=== PATIENT | female | born 1965 | race Caucasian/White ===

== ENCOUNTER 2024-02-03 20:23 | Emergency (ER) | payer MEDICAID, SELFPAY ==
[2024-02-03 20:24] VITALS: BP 148/67; PULSE 65; RESP 16; TEMP 37; O2SAT 99; BMI 17.6
[2024-02-03 20:30] VITALS: BP 148/67; PULSE 60; O2SAT 99
--- NOTE | 2024-02-03 20:31 | ECG_ITS ---
APPROVED REPORT Exam: Resting ECG HR:54 bpm ECG Measurements Heart Rate 54 AXES MT 153 P 85 QRSd 84 QRS 66 QT 428 T 74 QTc 415 Conclusion SINUS BRADYCARDIA WITH SINUS ARRHYTHMIA No STEMI -Jayla Patel MD Electronically signed by : JAYLA PATEL, 02/03/2024 23:40:53
--- NOTE | 2024-02-03 20:49 | XR_ITS ---
PROCEDURE INFORMATION: Exam: XR Chest Exam date and time: 02/03/2024 8:50 PM Age: 58 years old Clinical indication: Other: Syncope TECHNIQUE: Imaging protocol: Radiologic exam of the chest. Views: 1 view. COMPARISON: No relevant prior studies available. FINDINGS: Lungs: Unremarkable. No consolidation. Pleural spaces: Unremarkable. No pleural effusion. No pneumothorax. Heart/Mediastinum: Unremarkable. No cardiomegaly. Bones/joints: Unremarkable. IMPRESSION: No acute findings.
--- NOTE | 2024-02-03 20:50 | ED_ITS ---
Discharge Plan Disposition Patient Disposition: Home, Self-Care Condition: Fair Prescriptions Prescriptions: New cefdinir 300 mg capsule 300 mg PO BID 5 Days Qty: 10 0RF Referrals Follow up/Referrals: Leia Nuno APRN [Primary Care Provider] - See instructions Activity Restrictions/Add. Instructions Additional Instructions/Restrictions: Follow up with your PCP in the next week regarding your lightheadedness and your UTI. Clinical Impressions Clinical Impression: UTI (urinary tract infection), Near syncope Instructions Patient Instructions: DI for Syncope in Adults (Fainting), DI for Urinary Tract Infection (UTI) Discharge ED Provider: Jayla Patel General Adult HPI General Chief complaint: Nausea/Vomiting/Diarrhea Stated complaint: N/V WEAKNESS Time Seen by Provider: 02/03/24 20:29 Mode of Arrival: Wheelchair Source of Information: Patient Limitations: No Limitations Description of Symptoms (Recalled from ER Triage Doc. by RN): Pt was visiting her son in Room 5 when she began to experience N/V and weakness. Pt states she's had spells like this for over 30 yerars. Pt was seen for this previously and did not get a dx. Pt states she has no pain and does not feel bad. Pt states the spells last from 2 minutes to 15 minutes. Pt is A&O*4 at this time. History of Present Illness HPI narrative: 58-year-old female with previous medical history of frequent similar episodes for 30 years and long-term tobacco use presents with syncope. Patient was visiting her son in the emergency department when she began to feel generalized weakness, lightheadedness, darkening of her vision, nausea, and slowly passed out and went to the ground. Family at the bedside states that this is normal for her and she frequently has these episodes without seeking medical care. Patient states she has not recently seen a supervisor net making but has been to a neurologist for these episodes before and is not sure of the cause. Denies chest pain, palpitations, shortness of breath. Related Data Previous Rx's Medication Instructions Recorded cefdinir 300 mg capsule 300 mg PO BID 5 days #10 caps 02/03/24 Allergies Allergy/AdvReac Type Severity Reaction Status Date / Time No Known Allergies Allergy Unverified 10/12/17 15:12 [facility] Disclaimer: The information contained in this section may have been updated after the patient was seen, as this information can be updated by other users. Social History Smoking Status: Current every day smoker alcohol intake: former current occupational status: other Travel in the last 8 weeks: None ROS Obtained: Yes All systems reviewed & no additional complaints except as documented Physical Exam General General appearance: alert and in no apparent distress Head Head exam: atraumatic, normocephalic and normal inspection Eye Eye exam: Present normal appearance, PERRL and EOMI ENT ENT exam: Present normal exam, normal oropharynx and mucous membranes moist Neck Neck exam: Present normal inspection, full ROM and trachea midline; Absent meningismus or lymphadenopathy Chest Chest inspection: Present normal inspection and symmetric chest wall rise; Absent tenderness Respiratory Respiratory exam: Present normal lung sounds bilaterally; Absent respiratory distress Cardiovascular Cardiovascular exam: Present regular rate and normal rhythm; Absent JVD Abdominal Exam Abdominal exam: Present soft and normal bowel sounds; Absent distention, tenderness or guarding Extremities Exam Extremities exam: Present normal inspection, full ROM and normal capillary refill; Absent calf tenderness Back Exam Back exam: Present normal inspection; Absent tenderness Neurological Exam Neurological exam: Present alert and oriented X3 Psychiatric Psychiatric exam: Present normal affect and normal mood Skin Skin exam: Present warm, dry, intact and normal color Lymphatic Lymphatic Findings: no adenopathy Medical Decision Making Sahil Inquiry Pt receiving controlled substance: No Sahil was queried for this patient: No Vital Signs: 02/03/24 20:24 02/03/24 20:30 02/03/24 21:02 Temperature 98.6 F Temperature Source Oral Pulse Rate 60 72 Pulse Rate [Left] 65 Respiratory Rate 16 Blood Pressure 148/67 H 151/59 H Blood Pressure [Right Arm] 148/67 H Blood Pressure Mean [Right Arm] 94 02 Sat by Pulse Oximetry 99 99 96 Oxygen Delivery Method Room Air 02/03/24 21:31 Temperature Temperature Source Pulse Rate 77 Pulse Rate [Left] Respiratory Rate Blood Pressure 136/76 Blood Pressure [Right Arm] Blood Pressure Mean [Right Arm] 02 Sat by Pulse Oximetry 96 Oxygen Delivery Method Lab Data Lab Results 02/03/24 20:28: WBC 10.8, RBC 4.53, Hgb 14.7, Hct 45.2, MCV 99.7 H, MCH 32.5 H, MCHC 32.6, RDW 12.9, Plt Count 301, MPV 8.7, Neut % (Auto) 45.6, Lymph % (Auto) 46.5, [place] % (Auto) 4.5, Eos % (Auto) 1.8, Baso % (Auto) 1.7, Neut # (Auto) 4.9, Lymph # (Auto) 5.0 H, [place] # (Auto) 0.5, Eos # (Auto) 0.2, Baso # (Auto) 0.2, Sodium 140, Potassium 3.8, Chloride 106, Carbon Dioxide 28, Anion Gap 9.8, BUN 10, Creatinine 0.80, Estimated Creat Clear 49, Estimated GFR 73, Est GFR ( Amer) 89, Glucose 107 H, Calcium 9.9, Troponin I < 0.01 02/03/24 21:47: Urine Color Yellow, Urine Appearance Clear, Urine pH 6.0, Ur Specific [place] 1.025, Urine Protein Negative, Urine Glucose (UA) Negative, Urine Ketones Negative, Urine Blood Trace-i, Urine Nitrate Negative, Urine Bilirubin Negative, Urine Urobilinogen 0.2, Ur Leukocyte Esterase Trace, Urine RBC 3-5, Urine WBC 5-10, Ur Squamous Epith Cells 3-5, Urine Bacteria 1+ 02/03/24 20:28 02/03/24 20:28 Orders (Tests/Meds): ED MEDICATIONS Discontinued Medications Generic Name Dose Route Start Last Admin Trade Name Freq PRN Reason Stop Dose Admin Cefdinir 300 mg 02/03/24 09:00 Cefdinir 300mg Capsule PO 02/03/24 09:01 ONCE ONE Lactated Ringer's 1,000 mls @ 999 mls/hr 02/03/24 20:48 02/03/24 21:00 Lactated Ringer's 1000 Ml Bag IV 02/03/24 21:48 999 mls/hr .Q1H1M ONE Administration ORDERS Category Date Time Status Chest XR -- portable [XR chest portable] Stat Exams 02/03/24 20:49 Completed BMP [Basic Metabolic Panel] Stat Lab 02/03/24 20:28 Completed CBC [Complete Blood Count Auto Diff] Stat Lab 02/03/24 20:28 Completed Trop I [Troponin I] Stat Lab 02/03/24 20:28 Completed Troponin I Q3H Lab 02/03/24 23:49 Ordered Troponin I Q3H Lab 02/04/24 02:49 Ordered Urinalysis and Microscopic Stat Lab 02/03/24 21:47 Completed ECG Data Tracing #1: ECG initial impression date: 02/03/24 ECG initial impression time: 20:45 ECG normal with no acute: arrhythmias, ischemia, conduction abnormalities, chamber hypertrophy Arrhythmias present: sinus shae Medical Decision Narrative: Considered multiple causes of patient's presentation including ACS, arrhythmia, low suspicion for PE, also considered pneumonia, pneumothorax, hypoglycemia, endocrinologic and metabolic abnormalities, among others. For this reason obtain CBC, CMP, troponin, chest x-ray and urine. These labs I independently reviewed and interpreted and were reassuring for normal CBC, CMP, undetectable troponin, chest x-ray independently reviewed and interpreted and shows no acute abnormalities to explain her syncope, and urinalysis I independently reviewed and interpreted and showed UTI in the setting of her suprapubic tenderness and reported lower abdominal discomfort. For this reason discussed with patient that she seems to have acute cystitis that may be contributing to her acute on chronic orthostatic lightheadedness so though patient symptoms have improved at this time I advised that she follow closely with her PCP to ensure that her symptoms improve within the next few days. Discharged with strict return precautions and prescription for cefdinir. Critical Care Critical Care Time Critical Care Time: No
[2024-02-03 21:00] LABS: Chloride 106 mmol/L (98-107); Sodium 140 mmol/L (136-145)
[2024-02-03] MEDS: LACTATED RINGERS 1000ML 1,000 ML 999 ML IV (21:00)
[2024-02-03 21:01] LABS: Potassium 3.8 mmoL/L (3.5-5.1)
[2024-02-03 21:02] VITALS: BP 151/59; PULSE 72; O2SAT 96
[2024-02-03 21:04] LABS: Anion Gap 9.8 mEq/L (5-15); Blood Urea Nitrogen 10 mg/dl (7-17); Calcium 9.9 mg/dl (8.4-10.2); Carbon Dioxide 28 mmol/L (22.0-30.0); Creatinine Clearance Estimated 49 mL/min (50-200); Estimated Glomerular Filt Rate 73 ml/min (>60); GFR (African American) 89 ML/MIN (>60); Glucose 107 mg/dl (74-100)
[2024-02-03 21:06] LABS: Basophils # 0.2 K/mm3 (0-0.2); Basophils % 1.7 % (0.1-2.0); Eosinophils # 0.2 K/mm3 (0.0-0.4); Eosinophils % 1.8 % (0.1-12.0); Hematocrit 45.2 % (37.0-47.0); Hemoglobin 14.7 g/dL (12.2-16.2); Lymphocytes % 46.5 % (10-50); Mean Corpuscular HGB Conc 32.6 g/dL (31.8-35.4); Mean Corpuscular Hemoglobin 32.5 pg (27.0-31.2); Mean Corpuscular Volume 99.7 fl (81-99); Mean Platelet Volume 8.7 fl (7.4-10.4); Monocytes # 0.5 K/mm3 (0.1-1.0); Monocytes % 4.5 % (1.7-9.3); Neutrophils # 4.9 K/mm3 (1.8-7.8); Neutrophils % 45.6 % (37.0-80.0); Platelet Count 301 K/mm3 (142-424); Red Blood Count 4.53 M/mm3 (4.20-5.40); Red Cell Distribution Width 12.9 % (11.5-17.5); White Blood Count 10.8 K/mm3 (4.8-10.8)
[2024-02-03 21:22] LABS: Troponin I < 0.01 ng/ml (0.00-0.034)
--- NOTE | 2024-02-03 21:25 | PC.NURSE ---
Pt states she's feeling better.
[2024-02-03 21:31] VITALS: BP 136/76; PULSE 77; O2SAT 96
[2024-02-03 21:53] LABS: Microscopic, Urine URINE MICROSCOPIC (MICROSCOPIC)
[2024-02-03 21:58] LABS: Appearance,Urine CLEAR (Clear); Bilirubin,Urine Negative (Negative); Blood, Urine TRACE-I (Negative); Color,Urine YELLOW (Yellow); Glucose,Urine (UA) Negative (Negative); Ketones,Urine Negative (Negative); Leukocyte Esterase,Urine TRACE (Negative); Nitrate,Urine Negative (Negative); Protein,Urine Negative (Negative); Specific Gravity, Urine 1.025 (1.005-1.030); Urobilinogen,Urine 0.2 EU/dl (0.2)
[2024-02-03 22:17] LABS: Bacteria,Urine 1+ /lpf
[2024-02-03 22:48] VITALS: BP 136/76; PULSE 75; RESP 18; TEMP 37.1; O2SAT 97
[2024-02-03] MEDS: CEFDINIR 300MG CAPSULE 300 MG PO (22:54)
== END 2024-02-03 22:56 | disposition home or self-care (01) ==
PROVIDERS: Emergency Provider Emergency Medicine; PCP Nurse Practitioner
DX: N39.0 Urinary tract infection, site not specified (principal); I49.9 Cardiac arrhythmia, unspecified; R00.1 Bradycardia, unspecified; R55 Syncope and collapse; F17.210 Nicotine dependence, cigarettes, uncomplicated; R10.30 Lower abdominal pain, unspecified
CPT/HCPCS: 71045; 80048; 81001; 84484; 85025; 93005; 96360; 99284